=== PATIENT | male | born 2000 | race Caucasian/White ===

== ENCOUNTER 2019-11-08 08:24 | Day surgery (SDC) | payer OTHER, SELFPAY ==
[~2019-11-08] VITALS: Ht 170.2 cm; Wt 59.9 kg
[~2019-11-08 08:24] MED LIST: OTC COUGH MED
[2019-11-08] MEDS ORDERED: fentaNYL citrate 0.05 MG/ML VIAL ONE (10:43)
[2019-11-08] MEDS ORDERED: MIDAZOLAM 2 MG/2 ML VIAL ONE (10:43)
[2019-11-08] MEDS ORDERED: LIDOCAINE VISCOUS 2% 20 ML UDC ONE (10:48)
[2019-11-08] MEDS ORDERED: diphenhydrAMINE 50 MG/ML VIAL ONE (11:11)
[2019-11-08] MEDS ORDERED: LIDOCAINE VISCOUS 2% 20 ML UDC PO STA (15:08)
[2019-11-08] MEDS ORDERED: diphenhydrAMINE 50 MG/ML VIAL IVP ONE (15:10)
[2019-11-08] MEDS ORDERED: MIDAZOLAM 2 MG/2 ML VIAL IVP ONE (15:10)
[2019-11-08] MEDS ORDERED: fentaNYL citrate 0.05 MG/ML VIAL IVP ONE (15:10)
== END 2019-11-08 12:00 | disposition home or self-care (01) ==
LOC: MDS 08:24 → MFCC 08:24 → MDS 12:00
PROVIDERS: ATTEND Internal Medicine Gastroenterology
DX: R10.9 Unspecified abdominal pain (principal); K21.0 Gastro-esophageal reflux disease with esophagitis; Z20.828 Contact with and (suspected) exposure to other viral communicable diseases
CPT/HCPCS: 43239; 88305; 88312; 88313; J1200; J2250; J3010; U0003